=== PATIENT | male | born 1950 | race African-American/Black ===

== ENCOUNTER 2016-11-12 07:54 | Observation (INO) | payer OTHER ==
[~2016-11-12] VITALS: Ht 188 cm; Wt 103.4 kg
--- NOTE | ~2016-11-12 | H ---
Formerly [facility] [address] [place] [address] HISTORY AND PHYSICAL Name: JUDITH SOLIS Room #: 210-P [facility] Marli MDrakeRDrake#: [id number] Admission: 11/12/16 Attend Phys: Niko Luis MD Discharge: 11/13/16 Date of : 54 Report #: [id number] THIS REPORT FOR: //name// For History and Physical, please see office documentation/handwritten note in the patient's medical record. By: 0000 1130 Niko Luis MD /HILTON
--- NOTE | ~2016-11-12 | P ---
[facility] [place] [address] PROCEDURE REPORT Name: JUDITH SOLIS Room #: 210-P [facility] M.R.#: [id number] Admission: 11/12/16 Attend Phys: Niko Luis MD Discharge: Date of : 54 Report #: [id number] THIS REPORT FOR: //name// CC: FAM unknown Niko SNOWDEN DATE OF SERVICE: 11/12/2016 PREOPERATIVE DIAGNOSIS: Fractured Medtronic Sprint Quattro lead. POSTOPERATIVE DIAGNOSIS: Fractured Medtronic Sprint Quattro lead. HISTORY: The patient is a 66-year-old with history of prior cardiac arrest who had a single chamber ICD implanted back in 2010. The following day, he needed a lead revision as the lead had dislodged. He did well for several years up until last week where he was noted to have a rising lead impedance initially 1400, then increased to 2000, then increased to 3000, also with evidence of noise on the lead that fortunately did not result in any inappropriate ICD shocks. Last week, his device was turned off and he wore a LifeVest and is here for a lead revision. Due to the fact that he only has 18-24 months left on his battery, we recommended proceeding with a generator exchange as well. ANESTHESIA: The patient underwent MAC anesthesia with no anesthesia related complications. DESCRIPTION OF PROCEDURE: The patient underwent informed consent. We discussed the details of the procedure including the risks, which include but not limited to bleeding, infection, vascular damage as well as pneumothorax and cardiac perforation. We also discussed that if we could not place new lead from the right side that he would prefer undergoing implantation of a left-sided ICD at this time. Of note, the initial device was placed on the right side because he is left handed. As such, the patient was brought to the EP laboratory in a fasting and sedated state and prepped and draped in a sterile fashion. He received IV antibiotics prior to initiation of the procedure. Next, a venogram was performed which showed patency at the right axillary vein. It appeared that there was flow down via the SVC into the right atrium as well. Next, I injected 20 mL of lidocaine and made an incision and opened the pocket. I dissected the lead out and then disconnected the device from the lead. Next, I attempted to obtain access to the right axillary vein and this was somewhat challenging, so I performed another venogram. Eventually, I was able to get the wire into the axillary vein, but as I advanced the J-tipped wire, it would not advance past the SVC coil. I therefore obtained a Wholey wire and again, this would not advance after prolonged attempted passing this stenosis. Therefore, a second venogram [address] [address] PROCEDURE REPORT Name: JUDITH SOLIS Room #: 210-P [facility] Mrali M.R.#: [id number] Admission: 11/12/16 Attend Phys: Niko Luis MD Discharge: Date of : 54 Report #: [id number] was performed and this time, we focused imaging at this area of the SVC coil and it was clearly obstructed and I could see collaterals that were circumventing this stenosis. As such, I placed caps on the old Medtronic ICD lead placed in the pocket and then closed. I then irrigated the pocket with vancomycin solution and then closed the pocket in 3 layers and placed some surgical glue. The patient was then reprepped in a sterile fashion on the left side. A venogram was performed and showed that there was a patency of the left axillary vein. It was still difficult to see the contrast entering from the SVC to the right atrium, but it appeared that there was some contrast trickling down. As such, I injected 20 mL of lidocaine and made another incision and created a pocket on the left side. Again for whatever reason, access on this left axillary vein was somewhat challenging and I obtained a second venogram. We used a total of 60 mL of contrast. Eventually, I was able to get access to this left axillary vein, which was quite deep. I placed the sheath using the modified Seldinger technique and then, I placed a new dual coil [employer] lead into the right ventricular apex with a good deal of separation from the other lead. The lead was tested and found to be functioning normally with good thresholds impedances and sensing. The lead was sutured to the prepectoral fascia and then the device was connected to the lead and was found to be functioning normally. Then, the pocket was irrigated with vancomycin and the pocket was closed in 3 layers using 2-0 for the deep layer, 3-0 for the mid layer and 4-0 for the subcuticular layer. A surgical glue was placed to the outer skin layer. The patient awoke neurologically and hemodynamically intact with no complications and 20 mL of blood loss. The explanted generator was a Medtronic model G015BMY. Serial number was [id number] originally implanted on 12/09/2010. The Medtronic lead that was capped on the right chest was a Medtronic model number 6947, serial number [id number]. The newly implanted device was a [employer] model number [id number], serial number [id number]. The RV lead was a [employer] model number 7120Q, 58 cm, serial number [id number]. This lead demonstrated R-wave of greater than 12 millivolts, pacing impedance of 900 ohms and the pacing threshold 0.5 volts at 0.5 milliseconds. Device was programmed to the VVI 40 mode. The VF zone was programmed at 187 beats per minute with ATP while charging followed by max output shocks. CONCLUSIONS: 1. Successful implantation of a new ICD on the left side. 2. Satisfactory newly implanted RV lead with satisfactory right ventricular pacing and sensing thresholds. [facility] [address] [place] [address] PROCEDURE REPORT Name: JUDITH SOLIS Room #: 210-P [facility] M.R.#: [id number] Admission: 11/12/16 Attend Phys: Niko Luis MD Discharge: Date of : 54 Report #: [id number] 3. Abandoned RV lead that is on the right side. 4. Obstruction of the SVC coil from the right-sided lead. By: [id number] 39 Niko Luis MD /nt
[~2016-11-12 07:54] MED LIST: ACETAMINOPHEN650 M5 PO; ADULT LOW DOSE81 MG PO; ALLERCLEAR10 MG PO; AMOXICILLIN/POTASSIU PO; ATENOLOL 50 MG50 M1 PO; ATENOLOL 50MG T50 M1 PO; CARVEDILOL25 MG PO; CIPROFLOXACIN500 M1 PO; COLACE100 MG PO; COREG PO; COZAAR100 MG PO; EFFIENT10 MG PO; GABAPENTIN100 MG PO; HYDRALAZINE 5050 M1 PO; HYDROCHLOROTHIA25 M1 PO; HYDROCODON-ACE1 EACH PO; HYDROCODONE-AP1 EAC6 PO; IBUPROFEN 400400 M1 PO; IMIPRAMINE HCL25 MG PO; LISINOPRIL5 MG PO; LOVASTAT40 PO; MAGNESIUM250 M1 PO; MECLIZINE HCL25 M1 PO; MEDROL DOSPAK21 TAB PO; MUCINEX600 MG PO; NAPROSYN500 MG PO; NICOTINE TRANSD14 M1 TOP; NICOTINE TRANSDE7 MG TOP; NORCO 5-325 TA1 EACH PO; NORVASC 5 MG TAB5 MG PO; PHENERGAN 25 MG25 M1 PO; SIMVASTATIN40 MG PO; TOPROL XL100 MG; TRIAMTERENE-HC1 EAC1 PO; ULTRAM 50MG TAB50 MG PO; VENTOLIN HFA 1818 GM INH; ZPAK PO
[2016-11-12] MEDS ORDERED: ATORVASTATIN CA40 MG PO (08:39)
[2016-11-12] MEDS ORDERED: MAGNESIUM PO (08:40)
[2016-11-12 09:04] VITALS: BP 171/83
[2016-11-12 09:07] LABS: ABSOLUTE NEUTROPHILS 2.4 thou/uL (1.4-8.2); BASOPHILS 0.4 % (0.0-2.0); HEMATOCRIT 42.7 % (42.0-52.0); HEMOGLOBIN 13.3 gm/dL (14.0-18.0); LYMPHOCYTES 36.6 % (24.0-44.0); MCH 27.8 pg (26.0-34.0); MCHC 31.2 g/dL (28.0-37.0); MCV 88.9 fL (80.0-100.0); MONOCYTES 11.6 % (1.0-8.0); PLATELET COUNT 104 thou/uL (150-400); POLYS 49.4 % (36.0-66.0); RDW 15.9 % (10.5-14.5); WBC 4.9 thou/uL (4.0-11.0)
[2016-11-12 09:13] LABS: APTT 49.5 Seconds (24.5-32.8); INR 1.2; PROTIME 12.4 Seconds (9.3-11.4)
[2016-11-12 09:14] LABS: MANUAL DIFF NO
[2016-11-12 09:17] LABS: CREATININE 1.2 mg/dL (0.7-1.3); POTASSIUM 4.4 mmol/L (3.5-5.1)
[2016-11-12 09:22] LABS: ALBUMIN 3.5 g/dL (3.4-5.0); TOTAL BILIRUBIN 0.5 mg/dL (<0.1-1.0); TOTAL PROTEIN 8.2 g/dL (6.4-8.2)
[2016-11-12 15:52] VITALS: BP 180/82
[2016-11-12 20:39] VITALS: BP 155/87
[2016-11-12 23:22] VITALS: BP 128/60
[2016-11-13 03:45] VITALS: BP 144/84
[2016-11-13 07:15] VITALS: BP 143/85
[2016-11-13 07:19] VITALS: BP 143/85
== END 2016-11-13 11:21 | disposition home or self-care (01) ==
LOC: CATH 07:54 → CV 09:24 → CATH 09:25 → 2N 15:39
PROVIDERS: Internal Medicine Cardiovascular Disease
DX: T82.897A Other specified complication of cardiac prosthetic devices, implants and grafts, initial encounter (principal); X58.XXXA Exposure to other specified factors, initial encounter; Y93.89 Activity, other specified; Y92.89 Other specified places as the place of occurrence of the external cause; Y99.8 Other external cause status

== ENCOUNTER → 2017-04-04 | Outpatient (CLI) | payer OTHER ==
[~2017-04-04] MED LIST changes: +ATORVASTATIN CA40 MG PO; +MAGNESIUM PO
== END ==
LOC: NUC 07:05
DX: I25.10 Atherosclerotic heart disease of native coronary artery without angina pectoris (principal)

== ENCOUNTER 2017-04-27 11:32 | Emergency (ER) | payer OTHER ==
[~2017-04-27] VITALS: Ht 188 cm; Wt 99.8 kg
[2017-04-27] MEDS ORDERED: ALDACTONE25 MG PO (13:26)
[2017-04-27] MEDS ORDERED: CITRATE OF MAG296 ML PO (13:30)
[2017-04-27 13:53] VITALS: BP 170/80
== END 2017-04-27 13:54 | disposition home or self-care (01) ==
LOC: ER 11:32
DX: K59.00 Constipation, unspecified (principal); I10 Essential (primary) hypertension; E78.00 Pure hypercholesterolemia, unspecified; I25.2 Old myocardial infarction; Z95.0 Presence of cardiac pacemaker; Z86.73 Personal history of transient ischemic attack (TIA), and cerebral infarction without residual deficits; Z95.5 Presence of coronary angioplasty implant and graft; Z85.46 Personal history of malignant neoplasm of prostate; Z87.891 Personal history of nicotine dependence

== ENCOUNTER → 2017-05-23 | Outpatient (CLI) | payer OTHER ==
[~2017-05-23] MED LIST changes: +ALDACTONE25 MG PO; +ASPIRIN81 M2 PO; +CITRATE OF MAG296 ML PO; +TOFRANIL25 MG PO; +TOPROL XL100 MG PO
--- NOTE | ~2017-05-23 | 2DMMODE ---
[facility] [place] [address] 2 D/M-MODE ECHOCARDIOGRAM Name: JUDITH SOLIS Room #: REG CL [facility]#: [id number] Admission: 05/23/17 Attend Phys: Giancarlo Newton MD Discharge: Date of : 54 Date of Service: 05/23/17 1049 Report #: [id number] THIS REPORT FOR: //name// APPROVED REPORT Study performed: 05/23/2017 09:39:05 EXAM: Comprehensive 2D, Doppler, and color-flow Echocardiogram Patient Location: Out-Patient Status: routine BSA: 2.26 HR: 65 bpm BP: 148/80 mmHg Rhythm: NSR Other Information Study Quality: Adequate Indications CAD Hx: cardiac arrest, WI, stent, ICD. Echo Enhancing Agent Indication: Endocardial border delineation Agent(s) / Amount(s) Used: Optison 3 cc 2D Dimensions RVDd: 40.68 mm LVEF(%): 27.27 (>50%) IVSd: 13.47 (7-11mm) LVOT Diam: 23.94 (18-24mm) LVDd: 51.12 mm PWd: 6.01 (7-11mm) Ascending Ao: 36.49 (22-36mm) LVDs: 44.60 (25-40mm) Aortic Root: 35.63 mm Carlos's LVEF: 27.27 % Volumes Left Atrial Volume (Systole) Single Plane 4CH: 41.79 mL Single Plane 2CH: 39.62 mL LA ESV Index: 20.00 mL/m2 Aortic Valve AoV Peak Cm.: 1.35 m/s AO Peak Gr.: 7.32 mmHg LVOT Max P.22 mmHg LVOT Max V: 1.03 m/s [facility] [place] [address] [place] [address] 2 D/M-MODE ECHOCARDIOGRAM Name: JUDITH SOLIS Room #: REG [facility]#: [id number] Admission: 05/23/17 Attend Phys: Giancarlo Newton MD Discharge: Date of : 54 Date of Service: 05/23/17 1049 Report #: [id number] [id number] Vmax: 3.42 cm2 Mitral Valve E/A Ratio: 0.7 MV Decel. Time: 217.48 ms MV E Max Cm.: 0.48 m/s MV A Cm.: 0.73 m/s MV PHT: 63.07 ms IVRT: 115.34 ms Pulmonary Valve PV Peak Cm.: 0.77 m/s PV Peak Gr.: 2.40 mmHg Pulmonary Vein P Vein S: 0.49 m/s P Vein A: 0.26 m/s P Vein D: 0.42 m/s P Vein A Dur.: 120.0 msec P Vein S/D Ratio: 1.17 Tricuspid Valve TR Peak Cm.: 2.64 m/s RAP Estimate: 5.00 mmHg TR Peak Gr.: 27.85 mmHg PA Pressure: 33.00 mmHg Left Ventricle The left ventricle is normal size. There is hypokinesis of the mid to basal inferolateral segment. There is normal left ventricular wall thickness. Left ventricular systolic function is mildly decreased. LVEF is 45%. Mild diastolic dysfunction is present (impaired relaxation pattern). Right Ventricle Right ventricle is at the upper limits of normal. The right ventricular systolic function is normal. Device lead is present in the right ventricle. Atria The left atrium size is normal. Right atrium is mildly dilated. Aortic Valve Aortic valve is mildly calcified. Mild to moderate aortic regurgitation. There is no aortic valvular stenosis. Mitral Valve The mitral valve is normal in structure. Mild mitral regurgitation. [address] [place] [address] 2 D/M-MODE ECHOCARDIOGRAM Name: JUDITH SOLIS Room #: REG CL [facility]#: [id number] Admission: 05/23/17 Attend Phys: Giancarlo Newton MD Discharge: Date of : 54 Date of Service: 05/23/17 1049 Report #: [id number] Tricuspid Valve The tricuspid valve is normal in structure. Mild to moderate tricuspid regurgitation. Estiamted PAP os 30-35mmHg. Pulmonic Valve The pulmonary valve is normal in structure. Mild pulmonic regurgitation. Great Vessels The aortic root is normal in size. The ascending aorta is normal in size. IVC is normal in size and collapses >50% with inspiration. Pericardium There is no pericardial effusion. <Conclusion> The left ventricle is normal size. Left ventricular systolic function is mildly decreased. There is hypokinesis of the mid to basal inferolateral segment. Mild diastolic dysfunction is present (impaired relaxation pattern). The left atrium size is normal. Mild to moderate aortic regurgitation. Mild mitral regurgitation. Mild to moderate tricuspid regurgitation. Estiamted PAP os 30-35mmHg. <ELECTRONICALLY SIGNED> By: Giancarlo Newton MD 05/23/17 1049 1049 1049 Giancarlo Newton MD /INF
== END ==
LOC: CV 08:54
DX: I25.10 Atherosclerotic heart disease of native coronary artery without angina pectoris (principal)

== ENCOUNTER 2017-08-15 08:20 | Emergency (ER) | payer OTHER ==
[~2017-08-15] VITALS: Ht 188 cm; Wt 99.8 kg
--- NOTE | ~2017-08-15 | EKG ---
[place] [address] [place] [address] ELECTROCARDIOGRAM REPORT Name: JUDITH SOLIS Room #: DEP JERRY Hernandez#: [id number] Admission: 08/15/17 Attend Phys: Discharge: 08/15/17 Date of : 54 Report #: [id number] THIS REPORT FOR: //name// [facility] ED Test Date: 2017-08-15 Test Time: 09:12:29 Pat Name: JUDITH SOLIS Department: Room: Gender: M Audioprosthologist: : 1950 Requested By: Jaswinder Smith Order Number: [id number] MD: Niko Luis Measurements Intervals [place] Rate: 59 P: 18 ND: 135 QRS: 41 QRSD: 109 T: -6 QT: 415 QTc: 412 Interpretive Statements Sinus rhythm Compared to ECG 05/27/2013 18:14:08 Aberrant conduction of supraventricular beat(s) no longer present Electronically Signed On 08-15-2017 13:50:07 LAYOUT MECHANIC by Niko Luis [email or web address] <ELECTRONICALLY SIGNED> By: Niko Luis MD 08/15/17 1350 1 1 Niko Luis MD /ATTILA
[2017-08-15 09:40] LABS: HEMATOCRIT 33.1 % (42.0-52.0); HEMOGLOBIN 10.6 gm/dL (14.0-18.0); MCH 28.2 pg (26.0-34.0); MCV 88.1 fL (80.0-100.0); RBC 3.76 mil/uL (4.50-6.00); RDW 15.4 % (10.5-14.5); WBC 6.3 thou/uL (4.0-11.0)
[2017-08-15 09:52] LABS: CALCIUM 9.3 mg/dL (8.5-10.1); CREATININE 1.2 mg/dL (0.7-1.3); POTASSIUM 4.3 mmol/L (3.5-5.1)
[2017-08-15] MEDS ORDERED: SALINE NASAL SP30 ML NASAL (10:03)
[2017-08-15] MEDS ORDERED: TESSALON PERLE100 MG PO (10:48)
[2017-08-15 10:54] VITALS: BP 163/88
[2018-03-26] MEDS ORDERED: PREDNISONE 20 M20 MG PO (08:17)
[2018-03-26] MEDS ORDERED: PROSCAR 5MG TABL5 M1 PO (09:25)
[2018-03-26] MEDS ORDERED: COUMADIN 3 MG TA3 M1 PO (09:26)
[2018-04-09] MEDS ORDERED: NORCO 5-325 TA1 EACH PO (06:23)
[2018-04-09] MEDS ORDERED: PROSCAR 5MG TABL5 M1 PO (17:51)
[2018-04-09] MEDS ORDERED: SENNA8.6 MG PO (17:51)
== END 2017-08-15 10:55 | disposition home or self-care (01) ==
LOC: ER 08:20
PROVIDERS: Emergency Medicine
DX: R04.0 Epistaxis (principal); R05 Cough; I10 Essential (primary) hypertension; E78.00 Pure hypercholesterolemia, unspecified; Z86.73 Personal history of transient ischemic attack (TIA), and cerebral infarction without residual deficits; Z85.46 Personal history of malignant neoplasm of prostate; Z87.891 Personal history of nicotine dependence

== ENCOUNTER 2019-09-15 13:17 | Emergency (ER) | payer OTHER ==
[~2019-09-15] VITALS: Ht 188 cm; Wt 97.5 kg
[~2019-09-15 13:17] MED LIST changes: +COUMADIN 3 MG TA3 M1 PO; +PREDNISONE 20 M20 MG PO; +PROSCAR 5MG TABL5 M1 PO; +SALINE NASAL SP30 ML NASAL; +SENNA8.6 MG PO; +TESSALON PERLE100 MG PO
[2019-09-15] MEDS ORDERED: ACETAMINOPHEN500 MG PO (13:37)
[2019-09-15] MEDS ORDERED: BAYER BACK & B1 EACH PO (13:37)
[2019-09-15] MEDS ORDERED: FLONASE 0.05%50 MCG NASAL (13:39)
[2019-09-15] MEDS ORDERED: IMIPRAMINE HCL25 MG PO (13:39)
[2019-09-15] MEDS ORDERED: NEURONTIN300 MG PO (13:39)
[2019-09-15] MEDS ORDERED: ZESTRIL40 MG PO (13:40)
[2019-09-15] MEDS ORDERED: COUMADIN 3 MG TA3 MG PO (13:41)
[2019-09-15 14:27] LABS: ABSOLUTE NEUTROPHILS 1.6 thou/uL (1.4-8.2); BASOPHILS 1.2 % (0.0-2.0); EOSINOPHILS 1.9 % (0.0-3.0); HEMATOCRIT 39.9 % (42.0-52.0); HEMOGLOBIN 12.5 gm/dL (14.0-18.0); LYMPHOCYTES 41.8 % (24.0-44.0); MCH 27.4 pg (26.0-34.0); MCHC 31.3 g/dL (28.0-37.0); MCV 87.5 fL (80.0-100.0); MONOCYTES 12.3 % (1.0-8.0); PLATELET COUNT 107 thou/uL (150-400); POLYS 42.8 % (36.0-66.0); RBC 4.55 mil/uL (4.50-6.00); RDW 15.6 % (10.5-14.5); WBC 3.8 thou/uL (4.0-11.0)
[2019-09-15 14:29] LABS: AMP/METHAMP Negative (Negative); BARBITURATES Negative (Negative); BENZODIAZEPINES Negative (Negative); COCAINE Negative (Negative); METHADONE Negative (Negative); OPIATES Negative (Negative); PCP Negative (Negative)
[2019-09-15 14:32] LABS: ANION GAP 7 mmol/L (7-16); BUN 28 mg/dL (7-18); CALCIUM 8.9 mg/dL (8.5-10.1); CHLORIDE 103 mmol/L (98-107); CO2 27 mmol/L (21-32); CREATININE 1.3 mg/dL (0.7-1.3); GLUCOSE 114 mg/dL (74-106); POTASSIUM 4.1 mmol/L (3.5-5.1); SODIUM 137 mmol/L (136-145)
[2019-09-15 14:42] LABS: ALBUMIN 3.6 g/dL (3.4-5.0); MAGNESIUM 1.4 mg/dL (1.8-2.4); SGOT 32 U/L (15-37); SGPT 38 U/L (30-65); TOTAL BILIRUBIN 0.5 mg/dL (<0.1-1.0); TOTAL PROTEIN 8.2 g/dL (6.4-8.2); TROPONIN-I <0.06 ng/mL (<0.06)
[2019-09-15] MEDS ORDERED: MAG-OXIDE400 MG PO (15:45)
[2019-09-15 16:08] LABS: APTT 60.3 Seconds (24.5-32.8); INR 3.7; PROTIME 37.8 Seconds (9.3-11.4)
[2019-09-15 16:20] VITALS: BP 154/82
--- NOTE | 2019-09-17 08:32 | EKG ---
[facility] [place] [address] ELECTROCARDIOGRAM REPORT Name: JUDITH SOLIS Room #: DEP 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: [facility] : 1950 Requested By: Jose Minaya Order Number: [id number] MD: Trip Alston Measurements Intervals [place] Rate: 63 P: 59 OK: 162 QRS: 29 QRSD: 120 T: -3 QT: 403 QTc: 413 Interpretive Statements Sinus rhythm No significant abnormality Compared to ECG 08/15/2017 09:12:29 No significant change was found Electronically Signed On 09-17-2019 8:31:48 [employer] by Trip Alston [email or web address] <ELECTRONICALLY SIGNED> By: Trip Alston MD, [facility] 09/17/19 0831 1437 143 Trip Alston MD, [facility] /EPI
== END 2019-09-15 16:35 | disposition home or self-care (01) ==
LOC: ER 13:17
PROVIDERS: Emergency Medicine
DX: R42 Dizziness and giddiness (principal); E83.42 Hypomagnesemia; I10 Essential (primary) hypertension; I25.2 Old myocardial infarction; E78.00 Pure hypercholesterolemia, unspecified; Z79.899 Other long term (current) drug therapy; Z87.891 Personal history of nicotine dependence; Z95.0 Presence of cardiac pacemaker

== ENCOUNTER → 2020-01-16 | Outpatient (CLI) | payer MEDICARE ==
[~2020-01-16] MED LIST changes: +ACETAMINOPHEN500 MG PO; +BAYER BACK & B1 EACH PO; +COUMADIN 3 MG TA3 MG PO; +FLONASE 0.05%50 MCG NASAL; +MAG-OXIDE400 MG PO; +NEURONTIN300 MG PO; +ZESTRIL40 MG PO
== END ==
LOC: SJCVC 11:16
PROVIDERS: ATTEND Internal Medicine Cardiovascular Disease
DX: Z45.02 Encounter for adjustment and management of automatic implantable cardiac defibrillator (principal); R94.31 Abnormal electrocardiogram [ECG] [EKG]; I25.10 Atherosclerotic heart disease of native coronary artery without angina pectoris; I10 Essential (primary) hypertension; E78.00 Pure hypercholesterolemia, unspecified; I47.2 Ventricular tachycardia; Z95.810 Presence of automatic (implantable) cardiac defibrillator; Z79.899 Other long term (current) drug therapy; Z87.891 Personal history of nicotine dependence

== ENCOUNTER → 2020-06-27 | Outpatient (CLI) | payer MEDICARE | LOC: SJCVC 10:01 | PROVIDERS: ATTEND Internal Medicine Cardiovascular Disease | DX: R94.31 Abnormal electrocardiogram [ECG] [EKG] (principal); I10 Essential (primary) hypertension; I25.10 Atherosclerotic heart disease of native coronary artery without angina pectoris; E78.00 Pure hypercholesterolemia, unspecified; R60.9 Edema, unspecified; I25.2 Old myocardial infarction; Z95.5 Presence of coronary angioplasty implant and graft; Z95.810 Presence of automatic (implantable) cardiac defibrillator; Z79.82 Long term (current) use of aspirin; Z79.899 Other long term (current) drug therapy; Z87.891 Personal history of nicotine dependence ==

== ENCOUNTER 2020-09-14 16:03 | Emergency (ER) | payer MEDICARE ==
[~2020-09-14] VITALS: Ht 188 cm; Wt 88.5 kg
[2020-09-14 16:46] LABS: ABSOLUTE NEUTROPHILS 2.8 thou/uL (1.4-8.2)
[2020-09-14 16:53] LABS: EOSINOPHILS 1.3 % (0.0-3.0); HEMATOCRIT 36.1 % (42.0-52.0); HEMOGLOBIN 11.3 gm/dL (14.0-18.0); LYMPHOCYTES 32.5 % (24.0-44.0); MCH 26.9 pg (26.0-34.0); MCHC 31.2 g/dL (28.0-37.0); MCV 86.1 fL (80.0-100.0); MONOCYTES 14.5 % (1.0-8.0); POLYS 50.7 % (36.0-66.0); RBC 4.19 mil/uL (4.50-6.00); RDW 16.4 % (10.5-14.5); WBC 5.6 thou/uL (4.0-11.0)
[2020-09-14] MEDS ORDERED: METFORMIN HCL500 M3 PO (16:58)
[2020-09-14 17:01] LABS: INR 3.7; PROTIME 38.3 Seconds (9.3-11.4)
[2020-09-14 17:12] LABS: CALCIUM 8.8 mg/dL (8.5-10.1); CREATININE 1.6 mg/dL (0.7-1.3)
[2020-09-14 17:18] LABS: POTASSIUM 4.4 mmol/L (3.5-5.1)
[2020-09-14 17:19] LABS: ALBUMIN 3.5 g/dL (3.4-5.0); TOTAL BILIRUBIN 0.6 mg/dL (0.2-1.0); TOTAL PROTEIN 8.1 g/dL (6.4-8.2)
[2020-09-14 17:25] LABS: PLATELET COUNT 132 thou/uL (150-400)
[2020-09-14 17:47] LABS: URINE BILIRUBIN NEGATIVE (Negative); URINE BLOOD 1+ (Negative); URINE CLARITY CLEAR; URINE COLOR YELLOW; URINE GLUCOSE-RANDOM* NEGATIVE (Negative); URINE KETONES NEGATIVE (Negative); URINE LEUKOCYTES-REFLEX NEGATIVE (Negative); URINE NITRITE-REFLEX NEGATIVE (Negative); URINE PROTEIN (DIPSTICK) 1+ (Negative); URINE SPECIFIC GRAVITY 1.015 (1.005-1.035)
[2020-09-14 18:06] LABS: SQUAMOUS 0-3 Few /LPF (0-3); URINE RBC 0-2 Rare /HPF (0-2); URINE WBC-REFLEX 0-5 Rare /HPF (0-5)
[2020-09-14 18:07] LABS: CASTS None Seen /LPF (None Seen); CRYSTALS None Seen /LPF (None Seen); MUCUS None Seen strn/LPF (None Seen)
[2020-09-14 19:15] VITALS: BP 147/75
--- NOTE | 2020-09-15 07:08 | EKG ---
[place] [address] [facility] [address] [place] [address] ELECTROCARDIOGRAM REPORT Name: JUDITH SOLIS [id number] Admission: 09/14/20 Attend Phys: Discharge: 09/14/20 Date of : 54 Report #: [id number] [facility] ED Test Date: 2020-09-14 Test Time: 16:12:47 Pat Name: JUDITH SOLIS Department: Room: Gender: Instruction Librarian: JORGE : 1950 Requested By: Brittanie May Order Number: [id number] MD: Ike Zaragoza Measurements Intervals [place] Rate: 62 P: 73 GA: 152 QRS: 11 QRSD: 95 T: -7 QT: 403 QTc: 410 Interpretive Statements Sinus rhythm Atrial premature complexes Probable left atrial enlargement Q Lead III only Compared to ECG 09/15/2019 14:37:00 Atrial premature complex(es) now present Electronically Signed On 09-15-2020 7:08:11 PUPPET MAKER by Ike Zaragoza [email or web address] <ELECTRONICALLY SIGNED> By: Ike Zaragoza MD, [facility] 09/15/20 0708 D: 02/1611 11 Ike Zaragoza MD, [facility] /EPI
== END 2020-09-14 19:57 | disposition home or self-care (01) ==
LOC: ER 16:03
PROVIDERS: Emergency Medicine
DX: R42 Dizziness and giddiness (principal); R05 Cough; R19.7 Diarrhea, unspecified; E83.42 Hypomagnesemia; I10 Essential (primary) hypertension; E78.5 Hyperlipidemia, unspecified; Z95.0 Presence of cardiac pacemaker; Z87.891 Personal history of nicotine dependence; Z79.899 Other long term (current) drug therapy; Z79.82 Long term (current) use of aspirin; Z20.822 Contact with and (suspected) exposure to COVID-19